=== PATIENT | male | born 1980 | race Caucasian/White ===

== ENCOUNTER 2017-12-19 13:21 | Day surgery (SDC) | payer OTHER ==
[~2017-12-19] VITALS: Ht 177.8 cm; Wt 88.7 kg
[~2017-12-19 13:21] MED LIST: BENTYL10 MG PO; HYDACE5 PO
[2017-12-19] MEDS ORDERED: Excedrin Extra1 EACH (13:38)
[2017-12-19] MEDS ORDERED: ESOM20 (13:38)
== END 2017-12-19 14:52 | disposition home or self-care (01) ==
LOC: ORSCSDS 13:21
PROVIDERS: Internal Medicine Gastroenterology
PROC: 0D758ZZ Dilation of Esophagus, Via Natural or Artificial Opening Endoscopic (ICD-10-PCS; principal; 2017-12-19 14:45)
PROC: 0DB68ZX Excision of Stomach, Via Natural or Artificial Opening Endoscopic, Diagnostic (ICD-10-PCS; principal; 2017-12-19 14:45)
PROC: 0DB58ZX Excision of Esophagus, Via Natural or Artificial Opening Endoscopic, Diagnostic (ICD-10-PCS; principal; 2017-12-19 14:45)
DX: R13.10 Dysphagia, unspecified (principal); K21.9 Gastro-esophageal reflux disease without esophagitis
CPT/HCPCS: 88305; 88342; J7120

== ENCOUNTER 2018-02-19 10:42 | Day surgery (SDC) | payer OTHER ==
[~2018-02-19] VITALS: Ht 177.8 cm; Wt 89.4 kg
[~2018-02-19 10:42] MED LIST changes: +ESOM20; +Excedrin Extra1 EACH; +XYLOCAINE
[2018-02-19] MEDS ORDERED: VICODIN 5-3001 EACH (11:06)
[2018-02-19] MEDS ORDERED: Omeprazole20 M1 (11:09)
[2018-02-19 12:51] LABS: Hematocrit 37.2 % (37.0-53.0); Mean Corpuscular HGB 30.8 pg (26.0-34.0); Mean Corpuscular HGB Conc 34.9 g/dL (31.5-36.5); Mean Corpuscular Volume 88 fL (80-100); Mean Platelet Volume 9.8 fL (9.1-12.4); Platelet Count 282 K/mm3 (150-400); RDW Coefficient Variation 12.2 % (11.7-14.2); RDW Standard Deviation 39.1 fL (35.1-46.3); Red Blood Cell Count 4.22 M/mm3 (4.30-5.90); White Blood Cell Count 4.99 K/mm3 (4.00-11.30)
== END 2018-02-19 12:32 | disposition home or self-care (01) ==
LOC: ORSCSDS 10:42
PROVIDERS: Internal Medicine Gastroenterology
PROC: 0DB58ZX Excision of Esophagus, Via Natural or Artificial Opening Endoscopic, Diagnostic (ICD-10-PCS; principal; 2018-02-19 11:45)
DX: R13.10 Dysphagia, unspecified (principal); K21.9 Gastro-esophageal reflux disease without esophagitis; G47.33 Obstructive sleep apnea (adult) (pediatric)
CPT/HCPCS: 82607; 82746; 85027; 88305

== ENCOUNTER 2020-06-09 19:09 | Inpatient (IN) | payer OTHER ==
[~2020-06-09] VITALS: Ht 180.3 cm; Wt 91.9 kg
[~2020-06-09 19:09] MED LIST changes: +Omeprazole20 M1; +VICODIN 5-3001 EACH
[2020-06-09 19:42] LABS: Hematocrit 29.4 % (37.0-53.0); Hemoglobin 9.4 g/dL (13.5-17.5); Mean Corpuscular HGB 30.2 pg (26.0-34.0); Mean Corpuscular Volume 95 fL (80-100); Mean Platelet Volume 9.5 fL (9.1-12.4); NRBC Auto 0.6 /100 WBC (0.0-0.2); RDW Coefficient Variation 14.3 % (11.7-14.2); RDW Standard Deviation 48.6 fL (35.1-46.3); Red Blood Cell Count 3.11 M/mm3 (4.30-5.90)
[2020-06-09 19:46] LABS: Platelet Count 2164 K/mm3 (150-400)
[2020-06-09 19:57] LABS: International Normalized Ratio 1.02; Prothrombin Time Results 10.9 Sec (9.7-11.5)
[2020-06-09 20:01] LABS: Alanine Aminotransfer (ALT/SGP 62 U/L (12-78); Albumin, Blood 4.2 g/dL (3.4-5.0); Albumin/Globulin Ratio 1.3 (0.8-1.8); Alk Phos 61 U/L (50-136); Anion Gap 5 mmol/L (6-16); Aspartate Aminotrans (AST/SGOT 33 U/L (12-37); Bilirubin, Total 0.2 mg/dL (0.1-1.0); Blood Urea Nitrogen 18 mg/dL (8-24); Bun/Creatinine Ratio 22.5 (12.0-20.0); CO2, Blood 27 mmol/L (21-32); Chloride, Blood 112 mmol/L (98-108); Globulin, Blood 3.2 g/dL (2.2-4.0); Glomerular Filtration Rate >60 (60-); Glucose, Blood 98 mg/dL (70-99); Potassium, Blood 3.8 mmol/L (3.5-5.5); Sodium, Blood 144 mmol/L (136-145); Total Protein, Blood 7.4 g/dL (6.4-8.2)
[2020-06-09 20:06] LABS: BASOPHILS ABSOLUTE MAN 1.67 K/mm3 (0.00-0.23); BASOPHILS PERCENT MAN 10 % (0-2); EOSINOPHILS ABSOLUTE MAN 0.16 K/mm3 (0.00-0.68); EOSINOPHILS PERCENT MAN 1 % (0-6); LYMPHOCYTES % ATYPICAL MANUAL 2 % (0-0); LYMPHOCYTES ABSOLUTE MAN 4.34 K/mm3 (0.84-5.20); LYMPHOCYTES PERCENT MAN 24 % (21-46); METAMYELOCYTE ABSOLUTE MAN 0.16 K/mm3 (0.00-0.00); METAMYELOCYTE PERCENT MAN 1 % (0-0); MONOCYTES ABSOLUTE MAN 0.33 K/mm3 (0.16-1.47); MONOCYTES PERCENT MAN 2 % (4-13); MYELOCYTE ABSOLUTE MAN 0.33 K/mm3 (0.00-0.00); MYELOCYTE PERCENT MAN 2 % (0-0); NEUTROPHILS ABSOLUTE MAN 9.68 K/mm3 (1.96-9.15); SEG NEUTROPHILS PERCENT MAN 58 % (41-73); TOTAL CELLS COUNTED 100
[2020-06-09 21:44] LABS: Percent Saturation 24.8 % (20.0-50.0)
[2020-06-09 21:45] LABS: C-REACTIVE PROTEIN, EXT RANGE <0.290 mg/dL (0.000-0.300); Lactate Dehydrogenase (Ld),Bld 270 U/L (100-240)
[2020-06-09] MEDS ORDERED: PANTOPRAZOLE SO40 M2 PO (21:46)
[2020-06-09] MEDS ORDERED: SUCR1 PO (21:46)
[2020-06-09] MEDS ORDERED: HYDROCODONE-AC1 EAC9 PO (21:47)
[2020-06-10 01:35] LABS: Hematocrit 27.7 % (37.0-53.0); Hemoglobin 8.9 g/dL (13.5-17.5)
[2020-06-10 07:29] LABS: Hematocrit 25.6 % (37.0-53.0); Hemoglobin 8.3 g/dL (13.5-17.5); Mean Corpuscular HGB 30.3 pg (26.0-34.0); Mean Corpuscular HGB Conc 32.4 g/dL (31.5-36.5); Mean Corpuscular Volume 93 fL (80-100); Mean Platelet Volume 9.3 fL (9.1-12.4); NRBC ABSOLUTE 0.06 K/mm3 (0.00-0.02); NRBC Auto 0.4 /100 WBC (0.0-0.2); RDW Coefficient Variation 14.6 % (11.7-14.2); RDW Standard Deviation 49.1 fL (35.1-46.3); Red Blood Cell Count 2.74 M/mm3 (4.30-5.90)
[2020-06-10 07:32] LABS: Platelet Count 1835 K/mm3 (150-400)
[2020-06-10 07:50] LABS: Alanine Aminotransfer (ALT/SGP 68 U/L (12-78); Albumin, Blood 3.5 g/dL (3.4-5.0); Albumin/Globulin Ratio 1.3 (0.8-1.8); Alk Phos 57 U/L (50-136); Anion Gap 5 mmol/L (6-16); Aspartate Aminotrans (AST/SGOT 42 U/L (12-37); Bilirubin, Total 0.2 mg/dL (0.1-1.0); Blood Urea Nitrogen 17 mg/dL (8-24); Bun/Creatinine Ratio 21.9 (12.0-20.0); CO2, Blood 26 mmol/L (21-32); Calcium, Blood 8.4 mg/dL (8.5-10.1); Chloride, Blood 114 mmol/L (98-108); Creatinine, Blood 0.78 mg/dL (0.60-1.20); Globulin, Blood 2.7 g/dL (2.2-4.0); Glomerular Filtration Rate >60 (60-); Glucose, Blood 98 mg/dL (70-99); Potassium, Blood 3.9 mmol/L (3.5-5.5); Sodium, Blood 145 mmol/L (136-145); Total Protein, Blood 6.2 g/dL (6.4-8.2)
[2020-06-10 08:00] LABS: BASOPHILS ABSOLUTE MAN 1.44 K/mm3 (0.00-0.23); BASOPHILS PERCENT MAN 9 % (0-2); EOSINOPHILS ABSOLUTE MAN 0.48 K/mm3 (0.00-0.68); EOSINOPHILS PERCENT MAN 3 % (0-6); LYMPHOCYTES ABSOLUTE MAN 4.64 K/mm3 (0.84-5.20); LYMPHOCYTES PERCENT MAN 29 % (21-46); METAMYELOCYTE ABSOLUTE MAN 0.16 K/mm3 (0.00-0.00); METAMYELOCYTE PERCENT MAN 1 % (0-0); MONOCYTES ABSOLUTE MAN 0.96 K/mm3 (0.16-1.47); MONOCYTES PERCENT MAN 6 % (4-13); MYELOCYTE ABSOLUTE MAN 0.16 K/mm3 (0.00-0.00); MYELOCYTE PERCENT MAN 1 % (0-0); NEUTROPHILS ABSOLUTE MAN 7.84 K/mm3 (1.96-9.15); SEG NEUTROPHILS PERCENT MAN 49 % (41-73); TOTAL CELLS COUNTED 100
[2020-06-10 08:01] LABS: BLASTS PERCENT MAN 2 % (0-0)
[2020-06-10 15:19] LABS: Hematocrit 25.4 % (37.0-53.0); Hemoglobin 8.1 g/dL (13.5-17.5)
[2020-06-11 05:49] LABS: Hematocrit 30.3 % (37.0-53.0); Hemoglobin 10.2 g/dL (13.5-17.5); Mean Corpuscular HGB 30.3 pg (26.0-34.0); Mean Corpuscular HGB Conc 33.7 g/dL (31.5-36.5); Mean Corpuscular Volume 90 fL (80-100); Mean Platelet Volume 9.3 fL (9.1-12.4); NRBC ABSOLUTE 0.05 K/mm3 (0.00-0.02); NRBC Auto 0.3 /100 WBC (0.0-0.2); RDW Coefficient Variation 14.9 % (11.7-14.2); RDW Standard Deviation 48.6 fL (35.1-46.3); Red Blood Cell Count 3.37 M/mm3 (4.30-5.90); White Blood Cell Count 14.69 K/mm3 (4.00-11.30)
[2020-06-11 06:04] LABS: Platelet Count 1833 K/mm3 (150-400)
[2020-06-11] MEDS ORDERED: Nicoderm Cq1 EAC1 TOP (18:14)
[2020-06-11] MEDS ORDERED: HYDURE500 PO (18:14)
[2020-06-13 14:08] LABS: FACTOR VIII ACTIVITY 161 % (56-140); INTERPRETATION Note (.); VON WILLEBRAND FACTOR (VWF) AG 135 % (50-200); VWF ACTIVITY 55 % (50-200)
== END 2020-06-11 18:45 | disposition home or self-care (01) | DRG 813 ==
LOC: ER 19:09 → MEDS 19:10
PROVIDERS: Emergency Medicine; Internal Medicine; Internal Medicine Hematology & Oncology; ADMIT Internal Medicine
PROC: 30233N1 Transfusion of Nonautologous Red Blood Cells into Peripheral Vein, Percutaneous Approach (ICD-10-PCS; principal; 2020-06-10)
PROC: 0DJ08ZZ Inspection of Upper Intestinal Tract, Via Natural or Artificial Opening Endoscopic (ICD-10-PCS; 2020-06-11)
DX: D68.0 Von Willebrand disease (principal); K26.4 Chronic or unspecified duodenal ulcer with hemorrhage; D47.3 Essential (hemorrhagic) thrombocythemia; K20.0 Eosinophilic esophagitis; K21.9 Gastro-esophageal reflux disease without esophagitis; K22.2 Esophageal obstruction; T39.315A Adverse effect of propionic acid derivatives, initial encounter; T39.1X5A Adverse effect of 4-Aminophenol derivatives, initial encounter; Y92.9 Unspecified place or not applicable
CPT/HCPCS: 36415; 36430; 70551; 74177; 80053; 81003; 82131; 82140; 82340; 82436; 82507; 82570; 82728; 83540; 83550; 83615; 83735; 83935; 83945; 84105; 84133; 84300; 84392; 84466; 84560; 85014; 85018; 85025; 85027; 85240; 85245; 85246; 85610; 85651; 85730; 86140; 86850; 86900; 86901; 86923; 93005; 93010; 96365; 96376; 99285-25; A9270; A9270-GY; C9113; G0378; J2250; J2704; J3010; J7030; J7050; P9016; Q9967; U0004

== ENCOUNTER 2020-09-09 12:01 | Day surgery (SDC) | payer OTHER ==
[~2020-09-09] VITALS: Ht 177.8 cm; Wt 93.5 kg
[~2020-09-09 12:01] MED LIST changes: +HYDROCODONE-AC1 EAC9 PO; +HYDURE500 PO; +IMODIUM A-D2 M1 PO; +Nicoderm Cq1 EAC1 TOP; +OMEPRAZOLE MAGN20 MG PO; +PANTOPRAZOLE SO40 M2 PO; +SUCR1 PO
[2020-09-09] MEDS ORDERED: Sprycel20 MG (12:36)
[2020-09-09] MEDS ORDERED: OMEP20ER PO (12:36)
[2020-09-09] MEDS ORDERED: ACET325 (12:37)
== END 2020-09-09 14:02 | disposition home or self-care (01) ==
LOC: ORSCSDS 12:01
PROVIDERS: Internal Medicine Gastroenterology
PROC: 0DB68ZX Excision of Stomach, Via Natural or Artificial Opening Endoscopic, Diagnostic (ICD-10-PCS; 2020-09-09)
PROC: 0DB58ZX Excision of Esophagus, Via Natural or Artificial Opening Endoscopic, Diagnostic (ICD-10-PCS; 2020-09-09)
PROC: 0D757ZZ Dilation of Esophagus, Via Natural or Artificial Opening (ICD-10-PCS; principal; 2020-09-09 13:15)
DX: K20.90 Esophagitis, unspecified without bleeding (principal); R13.10 Dysphagia, unspecified; K22.2 Esophageal obstruction; C95.90 Leukemia, unspecified not having achieved remission; Z79.899 Other long term (current) drug therapy
CPT/HCPCS: 88305; 88341; 88342; J2250; J2704; J7120